=== PATIENT | male | born 1940 | race Caucasian/White ===

== ENCOUNTER 2018-08-22 21:39 | Emergency (ER) | payer OTHER ==
[2018-08-22 22:35] VITALS: BMI 29.0
--- NOTE | 2018-08-22 23:16 | PDOC ---
History of Present Illness - General History Source: Care Provider Exam Limitations: Dementia - History of Present Illness Initial Comments: 08/22/18 23:20 The patient is a 75 year old male, with a significant PMH of dementia, unsteady gait, pulmonary HTN, cellulitis, schizophreniform disorder who was BIBA to the emergency department today from [facility] on the s/p fall yesterday. As per long term, patient was sent in for treatment for a known fifth medical carpal fracture. No LOC or head trauma. Allergies: chlorpromazine, haloperidol, penicillins PCP: Dr. Lacy <Sidra Landry - Last Filed: 08/22/18 23:21> <Nadia Garcia - Last Filed: 08/23/18 02:13> - General Chief Complaint: Injury Stated Complaint: FALL Time Seen by Provider: 08/22/18 22:27 Past History <Sidra Landry - Last Filed: 08/22/18 23:21> - Suicide/Smoking/Psychosocial Hx Smoking History: Never smoked Have you smoked in the past 12 months: No Information on smoking cessation initiated: No Hx Alcohol Use: No Drug/Substance Use Hx: No <Nadia Garcia - Last Filed: 08/23/18 02:13> - Past Medical History Allergies/Adverse Reactions: Allergies Allergy/AdvReac Type Severity Reaction Status Date / Time chlorpromazine Allergy Verified 08/22/18 22:29 haloperidol [From Haldol] Allergy Verified 08/22/18 22:29 Penicillins Allergy Verified 08/22/18 22:29 Review of Systems - Review of Systems Comments:: 08/22/18 23:21 CONSTITUTIONAL: (+)dementia Absent: fever, no chills, no fatigue EYES: Absent: visual changes CARDIOVASCULAR: Absent: chest pain, no palpitations RESPIRATORY: Absent: cough, no SOB MUSKULOSKELETAL:(+)left upper extremity pain Absent: back pain, no arthralgia, no myalgia SKIN: Absent: rash NEURO: Absent: headache <Sidra Landry - Last Filed: 08/22/18 23:21> *Physical Exam - Vital Signs Last Vital Signs Temp Pulse Resp BP Pulse Ox 98.5 F 84 18 121/46 L 98 08/22/18 21:39 08/22/18 21:39 08/22/18 21:39 08/22/18 21:39 08/22/18 21:39 - Physical Exam Comments: 08/22/18 23:24 GENERAL: (+)dementia (+)poor historia Well-appearing, well-nourished. No apparent distress. HEENT: Normocephalic, atraumatic. PERRL, EOM intact. CARDIOVASCULAR: Normal S1, S2. Regular rate and rhythm. PULMONARY: Clear to auscultation bilaterally. ABDOMEN: Soft, non-distended, non-tender. EXTREMITIES: (+)3+ lower extremity pitting edema Normal ROM in all four extremities. No gross deformities. SKIN: (+)chronic venous stasis Warm, dry. NEUROLOGICAL: No focal neurological deficits. <Sidra Landry - Last Filed: 08/22/18 23:21> - Vital Signs Last Vital Signs Temp Pulse Resp BP Pulse Ox 98.5 F 84 18 121/46 L 98 08/22/18 21:39 08/22/18 21:39 08/22/18 21:39 08/22/18 21:39 08/22/18 21:39 <Nadia Garcia - Last Filed: 08/23/18 02:13> Moderate Sedation - Procedure Monitoring Vital Signs: Procedure Monitoring Vital Signs Temperature 98.5 F 08/22/18 21:39 Pulse Rate 84 08/22/18 21:39 Respiratory Rate 18 08/22/18 21:39 Blood Pressure 121/46 L 08/22/18 21:39 O2 Sat by Pulse Oximetry (%) 98 08/22/18 21:39 <Sidra Landry - Last Filed: 08/22/18 23:21> - Procedure Monitoring Vital Signs: Procedure Monitoring Vital Signs Temperature 98.5 F 08/22/18 21:39 Pulse Rate 84 08/22/18 21:39 Respiratory Rate 18 08/22/18 21:39 Blood Pressure 121/46 L 08/22/18 21:39 O2 Sat by Pulse Oximetry (%) 98 08/22/18 21:39 <Nadia Garcia - Last Filed: 08/23/18 02:13> Medical Decision Making - Medical Decision Making 08/23/18 01:10 xray of left hand reveals 5th metacarpel midshaft fracture -sensation is intact,cap refill < 2 seconds -ulnar splint was applied 08/23/18 01:17 called [facility] on the [facility] [phone] then spoke with the nursing supervisor type disk quality control Philip [phone] and informed them od the L fifth metacarpal fracture and it was splinted <Nadia Garcia - Last Filed: 08/23/18 02:13> *DC/Admit/Observation/Transfer - Attestations Scribe Attestion: 08/22/18 23:20 Documentation prepared by Sidra Landry, acting as medical accounting clerk for Nadia Garcia MD <Sidra Landry - Last Filed: 08/22/18 23:21> <Nadia Garcia - Last Filed: 08/23/18 02:13> - Discharge Dispostion Condition at time of disposition: Fair - Referrals Referrals: Fortunato Lacy MD [Primary Care Provider] - - Patient Instructions - Post Discharge Activity
[2018-08-23] MEDS ORDERED: ACETAMINOPHEN 325 MG TABLET (FP) PO ONE (01:52)
[2018-08-23] MEDS ORDERED: ACETAMINOPHEN 325 MG TABLET (FP) ONE (02:35)
[2018-08-23 02:41] VITALS: BP 122/70; PULSE 83; TEMP 97.9
== END 2018-08-23 03:19 ==
LOC: JER 21:39
PROC: 2W3DX1Z Immobilization of Left Lower Arm using Splint (ICD-10-PCS; principal; 2018-08-22)
DX: S62.327A Displaced fracture of shaft of fifth metacarpal bone, left hand, initial encounter for closed fracture (principal); W17.89XA Other fall from one level to another, initial encounter; Z91.81 History of falling; Y93.89 Activity, other specified; Y92.128 Other place in nursing home as the place of occurrence of the external cause; F03.90 Unspecified dementia, unspecified severity, without behavioral disturbance, psychotic disturbance, mood disturbance, and anxiety; F20.9 Schizophrenia, unspecified; I27.20 Pulmonary hypertension, unspecified; R26.89 Other abnormalities of gait and mobility
CPT/HCPCS: 29125; 73060-TC-LT-FY; 73110-TC-LT-FY; 73130-TC-LT-FY; 99281-25